=== PATIENT | female | born 1975 | race American Indian/Alaskan Native ===

== ENCOUNTER 2018-01-04 11:30 | Inpatient (IN) | payer MEDICAID ==
--- NOTE | 2018-01-04 13:51 | Anesthesia Consultation ---
Anesthesia Consult and Med Hx Date of service: 01/12/18 - Airway Anesthetic Teeth Evaluation: Caps ROM Head & Neck: Adequate Mental/Hyoid Distance: Adequate Mallampati Class: Class II Intubation Access Assessment: Good - Pulmonary Exam CTA: Yes - Cardiac Exam Cardiac Exam: RRR - Pre-Operative Health Status ASA Pre-Surgery Classification: ASA3 Proposed Anesthetic Plan: General Nerve Block: adducter canal - Pulmonary Hx Smoking: Yes (1 PPD X 25 YRS) Hx Asthma: Yes (INHALER PRN) Hx Sleep Apnea: No (STEVEN PRE SCREEN LOW RISK.) - Cardiovascular System Hx Hypertension: No - Central Nervous System Hx Back Pain: Yes (CHRONIC) Hx Psychiatric Problems: Yes (PTSD) - Other Systems Hx Cancer: No Hx Obesity: Yes
[2018-01-12] MEDS ORDERED: ANCEF/STERILE WATER 2 GM/20 ML IV NR (06:00)
[2018-01-12] MEDS ORDERED: VERSED IV NR (06:00)
[2018-01-12] MEDS ORDERED: PEPCID PO NR (06:00)
[2018-01-12] MEDS ORDERED: LACTATED RINGERS 1,000 ML IV SCH (14:00)
[2018-01-14] MEDS ORDERED: VERSED IV NR (06:00)
[2018-01-14] MEDS ORDERED: PEPCID PO NR (06:00)
[2018-01-14] MEDS ORDERED: ANCEF/STERILE WATER 2 GM/20 ML IV NR (06:00)
[2018-01-14] MEDS ORDERED: LACTATED RINGERS 1,000 ML IV SCH (14:00)
[2018-01-26] MEDS ORDERED: TORADOL PO ONE
[2018-01-26] MEDS ORDERED: VERSED IV NR (00:01)
[2018-01-26] MEDS ORDERED: PEPCID PO NR (06:00)
[2018-01-26] MEDS ORDERED: ANCEF/STERILE WATER 2 GM/20 ML IV NR (06:00)
[2018-01-26] MEDS ORDERED: MARCAINE 0.25% INFILTRATI ONE ×3 (08:44→13:09)
[2018-01-26] MEDS ORDERED: TORADOL ONE (08:44)
[2018-01-26] MEDS ORDERED: TRANEXAMIC ACID ONE (08:44)
[2018-01-26] MEDS ORDERED: NACL ONE (08:44)
[2018-01-26] MEDS ORDERED: POLYMYXIN B SULFATE IV ONE ×3 (08:45→12:45)
[2018-01-26] MEDS ORDERED: MORPHINE ONE (08:45)
[2018-01-26] MEDS ORDERED: BACITRACIN ONE (08:46)
[2018-01-26] MEDS ORDERED: NACL 0.9% 200 ML ONE (08:46)
[2018-01-26] MEDS ORDERED: CLORPACTIN WCS-90 IR ONE ×3 (08:46→13:05)
[2018-01-26] MEDS ORDERED: NACL 0.9% 250ML 250 ML ONE (08:46)
--- NOTE | 2018-01-26 09:01 | Anesthesia Day of Surgery ---
Anesthesia Day of Surgery - Day of Surgery Patient Examined: Yes Patient H&P Reviewed: Yes Patient is NPO: Yes
[2018-01-26] MEDS ORDERED: MARCAINE 0.5% INFILTRATI ONE (09:10)
[2018-01-26] MEDS ORDERED: DECADRON ONE ×2 (09:10→09:26)
[2018-01-26] MEDS ORDERED: SUBLIMAZE ONE ×2 (09:26→11:35)
[2018-01-26] MEDS ORDERED: ZOFRAN ONE (09:26)
[2018-01-26] MEDS ORDERED: DIPRIVAN 10 MG/ML IV ONE ×2 (09:26→10:06)
[2018-01-26] MEDS ORDERED: XYLOCAINE MPF 2% ONE (09:26)
[2018-01-26] MEDS ORDERED: DILAUDID IV PRN (09:30)
[2018-01-26] MEDS ORDERED: XYLOCAINE 1%/ EPI 1:100,000 INFILTRATI ONE (09:50)
[2018-01-26] MEDS ORDERED: TYLENOL ONE (09:51)
[2018-01-26] MEDS ORDERED: LACTATED RINGERS 1,000 ML ONE (09:54)
[2018-01-26] MEDS ORDERED: NEURONTIN PO NR (10:00)
[2018-01-26] MEDS ORDERED: TRANEXAMIC ACID IV ONE ×3 (10:35→10:40)
[2018-01-26] MEDS ORDERED: DILAUDID ONE (10:47)
[2018-01-26] MEDS ORDERED: BENADRYL ONE (11:35)
[2018-01-26] MEDS ORDERED: BACITRACIN IR ONE ×2 (12:45)
[2018-01-26] MEDS ORDERED: NACL 0.9% IV ONE ×2 (13:09)
[2018-01-26] MEDS ORDERED: TORADOL IV ONE (13:09)
[2018-01-26] MEDS ORDERED: MORPHINE IM ONE ×2 (13:09)
[2018-01-26] MEDS ORDERED: ROBINUL ONE (13:24)
[2018-01-26] MEDS ORDERED: BLOXIVERZ ONE (13:24)
[2018-01-26] MEDS ORDERED: ZEMURON IV ONE (13:24)
[2018-01-26] MEDS ORDERED: DULCOLAX PR PRN (14:17)
[2018-01-26] MEDS ORDERED: ZOFRAN IV PRN (14:17)
[2018-01-26] MEDS ORDERED: PROAIR IH PRN (14:32)
[2018-01-26] MEDS ORDERED: NORMODYNE IV PRN (14:32)
[2018-01-26] MEDS ORDERED: PROVENTIL IH PRN (14:57)
[2018-01-26] MEDS ORDERED: SODIUM CHLORIDE FLUSH SYRINGE 10 ML IV SCH (15:00)
[2018-01-26] MEDS ORDERED: LACTATED RINGERS 1,000 ML IV SCH (15:00)
--- NOTE | 2018-01-26 15:13 | Post Anesthesia Evaluation ---
- Post Anesthesia Evaluation Patient Participated: Yes Airway Patent: Yes Stable Respiratory Function: Yes Nausea/Vomiting: No Temp > 96.8F: Yes Pain Manageable: Yes Adequeate Hydration: Yes Anesthesia Complications: No
[2018-01-26] MEDS: PERCOCET 5/325 PO SCH (17:09)
--- NOTE | 2018-01-26 17:34 | Operative Report ---
SURGEON: Smooth Will MD. ASSISTANTS: Sin Abrams, operative tech and Sarahi operative tech. PREOPERATIVE DIAGNOSES: 1.Severe advanced osteoarthritis, right knee joint. 2.Genu varum deformity. 3.Stiff right knee joint. POSTOPERATIVE DIAGNOSES: 1.Synovial hypertrophy and synovial proliferation. 2.Stiff right knee joint. 3.Severe genu varum deformity. 4.Tricompartmental osteoarthritis of right knee joint. PROCEDURES PERFORMED: 1. Right total knee replacement. 2. Partial synovectomy, right knee joint. IMPLANTS USED: Medacta GMK sphere primary knee, femur size 6, tibial tray size 4, right side fixed tibial bearing surface, Cement, Palacos R plus G, epicondylar angle 3-degree, external rotation 3-4 degree. Polyethylene liner 10 mm highly cross-linked. Patella sized 2 anatomic patella. BRIEF HISTORY: The patient had a painful right knee, failed conservative treatment, opted to go for surgical intervention. Risks, benefit discussed, informed consent obtained, brought to the hospital for the above procedure. DETAILS OF THE OPERATIVE REPORT: The patient was taken to the operating, smooth and general endotracheal anesthesia, all the bony prominence were carefully padded, placed supine on the operating table. Thigh tourniquet was placed. Right knee, right lower extremity prepped and draped in sterile fashion. Leg elevated, Esmarch used and tourniquet inflated to 300 mmHg. Longitudinal incision made over anterior aspect of the knee, exposing extensive mechanism. Arthrotomy was performed. Patella displaced laterally. Gross finding revealed severe advanced degenerative arthritis. Subperiosteal dissection was continued around the proximal medial tibia as necessary. Soft tissue release was performed to correct the fixed angular deformity. Drill was used to open up the femoral canal. Distal intramedullary femoral cutting guide was placed. Distal femur resected 5-degree valgus angle and epicondylar access apex was determined. Femoral sizing guide was placed, appropriate components selected. Anterior and posterior condyles were then resected with oscillating saw. Extramedullary tibial cutting guide was placed, proximal tibia resected perpendicular to the long axis of tibia, minimum bone resection was performed. Gap balance and lamina spreaders placed between femur and tibia. Arthritic ACL and PCL ligaments were removed. Medial and lateral meniscectomy performed. Posterior osteophytes were removed. Tightness on the medial side was present on the medial soft tissue structures and gap balancing was achieved by doing appropriate soft tissue release on the medial side. Once gap balancing was achieved with spacer block, alignment was checked with a spacer block and an alignment gianni was balanced in flexion, extension with 10-spacer. Decided to go with the trial components, tibia was then prepared by tibial reaming and broach system by placing the tibial tray in proper position, proper external rotation. Femur was then prepared for the trochlear cut. The trialing of the knee was performed with 10 liner. We had great stability, full extension, full flexion, stable throughout range of motion. Patellar tracking central. Patella prepared with patellar reaming system prepared for three post-patella. Synovium around the patella was excised. Osteophytes removed. Prepatellar thickness 25 mm, post-patellar thickness 25 mm. Patella tracking central throughout range of motion. Trial components were removed, thoroughly washed the knee area with antibiotic-soaked normal saline followed by normal saline and Clorpactin and bone surface cleaned, dried, and cementing of the knee was performed. Tibia was cemented first, set in proper position, proper external rotation and packed in place. Excess cement was removed. Femur was then cemented in proper position, proper external rotation and packed in place. Excess cement was removed. Trial liner was then placed. Once the cementing of the patella was performed, compression placed, excess cement was removed. Once the cement was hardened, real tibial articulating surface was implanted and knee again moved through range of motion and found to be extremely stable. Hemostatic agents were in sprayed around the knee for better hemostasis. No active bleeder as such. These pain cocktail was injected into the periarticular tissue around the knee. Arthrotomy closed with 0 Vicryl sutures interrupted. Subcutaneous tissue was closed with 0 and 2-0 Vicryl interrupted sutures. Skin was closed with Monocryl. Aquacel dressing done. Noe wrap applied. The patient tolerated the procedure well, shifted to recovery room in stable condition. Sponge and needle count was correct. JOB# [id number] JULIANA/DORA
[2018-01-26] MEDS ORDERED: NON-FORMULARY (Oxycodone Hcl/Acetaminophen [Percocet 10/325 Mg] 1 EACH) PO SCH (18:00)
--- NOTE | 2018-01-26 18:06 | History and Physical Report ---
History of Present Illness Date of admission: 01/26/18 08:22 Chief complaint: I just had surgery History of present illness: 42 YO female with STEVEN, Obesity Hypoventillation, PTSD, Asthma, DJD presents to [facility] for elective TKA. Pt admitted directly to hospitalist service postoperatively at the request of Dr. Will for medical management. Pt seen and evaluated upon arrival to the surgical floor. Pt resting comfortably in bed , Pt denies fever, chils, CP, Palpitations, NVD, or shortness of breath. No reported nursing events. Pt at bedside. Past History Past Medical History: other (Obesity, Asthma, PTSD, ) Past Surgical History: total knee replacement Social history: , lives with family. denies: smoking, alcohol abuse, prescription drug abuse Family history: hypertension Medications and Allergies Allergies Allergy/AdvReac Type Severity Reaction Status Date / Time sulfamethoxazole Allergy Rash Verified 12/30/17 15:30 [From Bactrim] trimethoprim [From Bactrim] Allergy Rash Verified 12/30/17 15:30 Home Medications Medication Instructions Recorded Confirmed Last Taken Type ALBUTEROL Inhaler(NF) [VENTOLIN 2 puff INHALATION PRN PRN 12/30/17 01/26/1806/13 20:00 History Inhaler(NF)] Oxycodone HCl/Acetaminophen 1 each PO Q6HR 12/30/17 01/26/18 01/25/18 20:00 History [Percocet 10/325 mg] Active Meds: Active Medications Albuterol (Proventil) 2.5 mg IH Q4HRT PRN PRN Reason: Shortness Of Breath Apixaban (Eliquis) 2.5 mg PO Q12HR PALLAVI; Protocol Stop: 02/07/18 21:59 Bisacodyl (Dulcolax) 10 mg FL QDAY PRN PRN Reason: Constip unreliev by MOM/or NPO Cefazolin Sodium (Ancef/Sterile Water 2 Gm/20 Ml) 2 gm IV PREOP NR Stop: 01/26/18 23:00 Celecoxib (Celebrex) 200 mg PO PREOP NR Stop: 01/26/18 21:00 Docusate Sodium (Colace) 100 mg PO BID PALLAVI Famotidine (Pepcid) 20 mg PO PREOP NR Stop: 01/26/18 23:01 Gabapentin (Neurontin) 300 mg PO PREOP NR Stop: 01/26/18 21:00 Gabapentin (Neurontin) 300 mg PO Q8HR [facility] Lactated Ringer's (Lactated Ringers) 1,000 mls @ 100 mls/hr IV DIRECT PALLAVI Cefazolin Sodium 2 gm/ Sodium (Chloride) 100 mls @ 200 mls/hr IV Q8H [facility] Stop: 01/27/18 10:29 Labetalol HCl (Normodyne) 5 mg IV Q20M PRN PRN Reason: Hypertension Midazolam HCl (Versed) 2 mg IV PREOP NR Stop: 01/26/18 23:00 Ondansetron HCl (Zofran) 4 mg IV Q8H PRN PRN Reason: Nausea And Vomiting Oxycodone/Acetaminophen (Percocet 5/325) 2 tab PO Q6HR [facility] Last Admin: 01/26/18 17:09 Dose: 2 tab Sodium Chloride (Sodium Chloride Flush Syringe 10 Ml) 10 ml IV PRN [facility] Review of Systems Constitutional: no weight loss, no fever, no chills, no sweats Ears, nose, mouth and throat: no ear pain, no ear discharge, no tinnitis, no decreased hearing, no nose pain, no nasal congestion, no nasal discharge Breasts: no change in shape, no swelling, no mass Cardiovascular: no chest pain, no orthopnea, no palpitations, no rapid/ irregular heart beat, no edema, no syncope Respiratory: no cough, no cough with sputum, no excessive sputum, no hemoptysis , no shortness of breath Gastrointestinal: no nausea, no vomiting, no diarrhea, no constipation, no change in bowel habits Genitourinary Female: no dysmenorrhea, no pelvic pain, no flank pain, no menorrhagia, no dysuria, no urinary frequency, no urgency, no stress incontinence, no incomplete emptying Menstruation: no ammenorrhea on BC, no period normal, no period spotting Rectal: no pain, no incontinence, no bleeding Musculoskeletal: no neck stiffness, no neck pain, no shooting arm pain, no arm numbness/tingling, no low back pain, no shooting leg pain Integumentary: no rash, no pruritis, no wounds Neurological: no head injury, no transient paralysis, no paralysis, no weakness , no parathesias, no numbness, no tingling, no seizures Psychiatric: no anxiety, no memory loss, no change in sleep habits, no sleep disturbances, no insomnia, no hypersomnia Endocrine: no cold intolerance, no heat intolerance, no polyphagia, no excessive thirst, no polydipsia, no polyuria, no nocturia Hematologic/Lymphatic: no easy bruising, no easy bleeding, no lymphadenopathy, no lymphedema Allergic/Immunologic: no urticaria, no allergic rhinitis, no wheezing, no persistent infections, no anaphylaxis, no angioedema Exam - Constitutional Vitals: Temp Pulse Resp BP Pulse Ox 99.6 F 84 16 163/90 97 01/26/18 15:35 01/26/18 15:35 01/26/18 15:35 01/26/18 15:35 01/26/18 15:35 General appearance: Present: obese - EENT Eyes: Present: PERRL ENT: hearing intact, clear oral mucosa - Neck Neck: Present: supple, normal ROM - Respiratory Respiratory effort: normal Respiratory: bilateral: CTA - Cardiovascular Heart Sounds: Present: S1 & S2. Absent: rub, click - Extremities Extremities: pulses symmetrical, No edema Peripheral Pulses: within normal limits - Abdominal General gastrointestinal: Present: soft, non-tender, non-distended, normal bowel sounds Female genitourinary: Present: normal - Integumentary Integumentary: Present: clear, warm, dry - Musculoskeletal Musculoskeletal: gait normal, strength equal bilaterally - Psychiatric Psychiatric: appropriate mood/affect, intact judgment & insight - Neurologic Neurologic: CNII-XII intact, moves all extremities Assessment and Plan - Patient Problems (1) Obesity hypoventilation syndrome Current Visit: Yes Status: Acute Plan to address problem: Supplemental oxygen, nebulizer therapy, incentive spirometry, NIPPV as clinically indicated, early ambulation. (2) DJD (degenerative joint disease) of knee Current Visit: Yes Status: Acute Qualifiers: Laterality: right Plan to address problem: Ortho consulted, S/P surgical intervention. Continue surgical management. Anticoagulation as per surgical team. (3) DVT prophylaxis Current Visit: Yes Status: Acute Plan to address problem: SCD to BLE while in bed.
[2018-01-26] MEDS: NEURONTIN PO SCH (21:09)
[2018-01-26] MEDS: ceFAZolin 2 GM in NACL 0.9% 100 ML IV SCH (21:10)
[2018-01-26] MEDS: COLACE PO SCH (21:13)
[2018-01-26] MEDS: ELIQUIS PO SCH (21:29)
[2018-01-27] MEDS: TORADOL IV PRN ×3 (01:11→20:34)
[2018-01-27] MEDS: PERCOCET 5/325 PO SCH ×4 (02:14→18:08)
[2018-01-27] MEDS: ceFAZolin 2 GM in NACL 0.9% 100 ML IV SCH ×2 (03:37→12:25)
[2018-01-27] MEDS: NEURONTIN PO SCH ×3 (05:06→21:20)
[2018-01-27 05:17] LABS: Hemoglobin 11.4 gm/dl (10.1-14.3)
[2018-01-27 05:32] LABS: INR 1.05 (0.87-1.13)
[2018-01-27 05:33] LABS: BUN/Creatinine Ratio 10; Blood Urea Nitrogen 7 mg/dL (7-17); Calcium 8.6 mg/dL (8.4-10.2); Hemolysis Index 5
[2018-01-27] MEDS: COLACE PO SCH ×2 (10:42→21:20)
[2018-01-27] MEDS: ELIQUIS PO SCH ×2 (12:25→21:19)
--- NOTE | 2018-01-27 14:39 | Progress Note ---
Subjective Date of service: 01/27/18 Interval history: pod1, s/p tka right side, pain under control with meds, patiet known case of chronic pain and fibromyalgia knee dressing dry calf soft NT she was taught to do ankle pumps and knee exercises. pillow under ankle recommended as she had pillow under the knee. all ques answered. post op protocol explained. She elects for Objective Vital signs: Vital Signs - 12hr 01/27/18 01/27/18 01/27/18 04:15 05:05 08:06 Temperature 98.8 F 99.0 F Pulse Rate 99 H 101 H Respiratory 18 17 18 Rate Blood Pressure 136/68 123/78 O2 Sat by Pulse 98 97 Oximetry 01/27/18 11:48 Temperature 98.4 F Pulse Rate 83 Respiratory 18 Rate Blood Pressure 149/79 O2 Sat by Pulse 98 Oximetry - Labs CBC & BMP: 01/27/18 04:44 01/27/18 04:44 Labs: Abnormal lab results 01/27/18 Range/Units 04:44 Glucose 169 H (65-100) mg/dL
--- NOTE | 2018-01-27 16:35 | Progress Note ---
Assessment and Plan (1) Morbid Obesity nutrition recommendation (2) DJD (degenerative joint disease) of knee Ortho consulted, S/P surgical intervention. Continue Post surgical management per orthi. Anticoagulation as per surgical team. PT/OT ordered (3) h/o asthma, not in exacerbation nebs as needed (4) DVT prophylaxis SCD to BLE while in bed and eliquis. Subjective Date of service: 01/27/18 Interval history: Pt seen and examined No acute event o/n had PT eval today c/o right knee pain Objective - Constitutional Vitals: Vital Signs - 12hr 01/27/18 01/27/18 01/27/18 05:05 08:06 11:48 Temperature 99.0 F 98.4 F Pulse Rate 101 H 83 Respiratory 17 18 18 Rate Blood Pressure 123/78 149/79 O2 Sat by Pulse 97 98 Oximetry 01/27/18 15:29 Temperature 98.3 F Pulse Rate 74 Respiratory 18 Rate Blood Pressure 125/63 O2 Sat by Pulse 96 Oximetry General appearance: Present: no acute distress, obese (morbid) - EENT Eyes: PERRL, EOM intact ENT: hearing intact, clear oral mucosa Ears: bilateral: normal - Neck Neck: supple, normal ROM - Respiratory Respiratory effort: normal Respiratory: bilateral: CTA - Cardiovascular Rhythm: regular Heart Sounds: Present: S1 & S2. Absent: gallop, rub Extremities: pulses intact, No edema, normal color, Full ROM - Gastrointestinal General gastrointestinal: Present: soft, non-tender, non-distended, normal bowel sounds - Integumentary Integumentary: clear, warm, dry - Musculoskeletal Musculoskeletal: other (rt knee with dressing) - Neurologic Neurologic: moves all extremities - Psychiatric Psychiatric: memory intact, appropriate mood/affect, intact judgment & insight - Labs CBC & Chem 7: 01/27/18 04:44 01/27/18 04:44 Labs: Abnormal lab results 01/27/18 Range/Units 04:44 Glucose 169 H (65-100) mg/dL
[2018-01-28] MEDS: PERCOCET 5/325 PO SCH ×3 (00:09→11:57)
[2018-01-28] MEDS: NEURONTIN PO SCH ×2 (05:39→13:50)
[2018-01-28 07:48] VITALS: BP 122/86
[2018-01-28] MEDS: COLACE PO SCH (10:00)
[2018-01-28] MEDS: ELIQUIS PO SCH (10:04)
--- NOTE | 2018-01-28 13:21 | Discharge Summary ---
Providers - Providers Date of Admission: 01/26/18 08:22 Date of discharge: 01/28/18 Attending physician: JON FERGUSON 01/26/18 14:17 Consult to Case Management [CONS] Routine Services Needed at Discharge: Home Health Services Physical Therapy DME Equipment Photo Engraver Notified:: HEARING AID SPECIALIST Phone number called:: MINISTER ASSISTANT Consult to Physician [CONS] Routine Comment: COMPLETED Consulting Provider: GUTIERREZ GODOY Physician Instructions: Reason For Exam: POSTOP TKA Occupational Therapy Evaluate and Treat [CONS] Routine Comment: Reason For Exam: POSTOP TKA 01/26/18 14:20 Physical Therapy Evaluation and Treat [CONS] Routine Comment: Reason For Exam: POSTOP TKA Primary care physician: PLANE RUNNER Hospitalization Reason for admission: total knee replacement Hospital course: Discharge diagnosis and management: (1) DJD (degenerative joint disease) of knee Ortho consulted, S/P surgical intervention. Continue Post surgical management per orthi. Anticoagulation as per surgical team. PT/OT ordered (2) Morbid Obesity nutrition recommendation provided (3) h/o asthma, not in exacerbation nebs as needed (4) h/o fibromyalgia and chronic pain - percocet as needed (5) DVT prophylaxis SCD to BLE while in bed and eliquis. Physical exam; General appearance: Present: no acute distress, obese (morbid) - EENT Eyes: PERRL, EOM intact ENT: hearing intact, clear oral mucosa Ears: bilateral: normal - Neck Neck: supple, normal ROM - Respiratory Respiratory effort: normal Respiratory: bilateral: CTA - Cardiovascular Rhythm: regular Heart Sounds: Present: S1 & S2. Absent: gallop, rub Extremities: pulses intact, No edema, normal color, Full ROM - Gastrointestinal General gastrointestinal: Present: soft, non-tender, non-distended, normal bowel sounds - Integumentary Integumentary: clear, warm, dry - Musculoskeletal Musculoskeletal: other (rt knee with dressing) - Neurologic Neurologic: moves all extremities - Psychiatric Psychiatric: memory intact, appropriate mood/affect, intact judgment & insight Disposition: [id number]/[place]-06 HOME [facility] Time spent for discharge: 34 minutes Core Measure Documentation - Palliative Care Palliative Care/ Comfort Measures: Not Applicable - Core Measures Any of the following diagnoses?: none Exam - Constitutional Vitals: Temp Pulse Resp BP Pulse Ox 97.7 F 75 18 122/86 96 01/28/18 07:11 01/28/18 07:11 01/28/18 07:11 01/28/18 07:11 01/28/18 07:11 Plan Activity: advance as tolerated, fall precautions Weight Bearing Status: Non-Weight Bearing Diet: low fat Durable Medical Equipment Needed Upon Discharge: Bedside Commode Additional Instructions: f/u with Nicolette in one week Follow up with: PRIMARY CARE, [Primary Care Provider] - 7 Days
--- NOTE | 2018-01-28 14:50 | Progress Note ---
Subjective Date of service: 01/28/18 Interval history: patient doing well, pain under control avss, nvi dressing dry ankle movts and senstaion present and calf soft an NT Knee exerc recommended. DC plan once clear by medicine and pT AND HH arrangements with DC instruction sheet and scripts Objective Vital signs: Vital Signs - 12hr 01/28/18 01/28/18 01/28/18 05:02 05:03 07:11 Temperature 97.7 F 97.7 F Pulse Rate 87 75 Respiratory 20 18 Rate Blood Pressure 125/75 122/86 O2 Sat by Pulse 97 96 Oximetry - Labs CBC & BMP: 01/27/18 04:44 01/27/18 04:44
== END 2018-01-28 15:35 | disposition home health service (06) | DRG 470 ==
LOC: 3A 01-26 08:22 → 3B-SURG 01-26 14:53
PROVIDERS: ADMIT Hospitalist; ATTEND Orthopaedic Surgery
PROC: 0SRC0J9 Replacement of Right Knee Joint with Synthetic Substitute, Cemented, Open Approach (ICD-10-PCS; principal; 2018-01-26)
PROC: 3E0T3BZ Introduction of Anesthetic Agent into Peripheral Nerves and Plexi, Percutaneous Approach (ICD-10-PCS; 2018-01-26)
DX: M17.11 Unilateral primary osteoarthritis, right knee (principal); F17.210 Nicotine dependence, cigarettes, uncomplicated; J45.909 Unspecified asthma, uncomplicated; F43.10 Post-traumatic stress disorder, unspecified; M54.89 Other dorsalgia; M21.161 Varus deformity, not elsewhere classified, right knee; M67.861 Other specified disorders of synovium, right knee; M67.261 Synovial hypertrophy, not elsewhere classified, right lower leg; M79.7 Fibromyalgia; G89.29 Other chronic pain; E66.2 Morbid (severe) obesity with alveolar hypoventilation; X58.XXXA Exposure to other specified factors, initial encounter; Y93.89 Activity, other specified; Z68.41 Body mass index [BMI] 40.0-44.9, adult; Z71.3 Dietary counseling and surveillance; Y92.89 Other specified places as the place of occurrence of the external cause; Y99.8 Other external cause status; Z82.49 Family history of ischemic heart disease and other diseases of the circulatory system; Z88.1 Allergy status to other antibiotic agents; Z88.2 Allergy status to sulfonamides; Z79.51 Long term (current) use of inhaled steroids
CPT/HCPCS: 36415; 64450; 80048; 81025; 85014; 85018; 85610; 86850; 86900; 86901; 87116; 88305; C1713; C1776; J0690; J1100; J1170; J1200; J1885; J2250; J2270; J2405; J2704; J2710; J3010; J7050; J7120